=== PATIENT | male | born 1980 | race African-American/Black ===

== ENCOUNTER 2018-01-22 21:43 | Inpatient (IN) | payer OTHER ==
[~2018-01-22] VITALS: Ht 177.8 cm; Wt 70.8 kg
--- NOTE | 2018-01-22 21:45 | NUR ---
PT BIBRA FR STREETS FOR INCREASED AGITATION, RUNNING INTO STREET, VERBALLY AGRESSIVE, POSSIBLE OD ON [place] SUBSTANCE, REQUIRING [employer] ASSISTANCE TO RESTRAIN PT, GIVEN VERSED 5MG IM IN FIELD. PT CONTINUES TO BE RESTLESS, AGITATED, UNABLE TO ACCOUNT FOR OWN SAFETY, PLACED ON CONTINUOUS 4-POINT RESTRAINTS ALL EXTREMITIES W/ PULSE-OX ON CARDIAC MONITORING, BED LOW TO GROUND, SIDERAILS UP FOR SAFETY, NEEDING CONTINUOUS VERBAL REDIRECTION.
[2018-01-22] MEDS ORDERED: OLANZAPINE 10 MG VIAL IM ONE (22:00)
[2018-01-22] MEDS ORDERED: LORAZEPAM INJ 2 MG/ML VIAL IM ONE (22:00)
[2018-01-22 22:20] LABS: BASOPHILS % (AUTO) 0.3 % (0.0-2.0); EOSINOPHILS % (AUTO) 0.5 % (0.0-6.0); HEMATOCRIT 30 % (39-51); HEMOGLOBIN 9.8 g/dL (13.5-17.5); LYMPHOCYTES # (AUTO) 1.4 /CMM (0.8-4.8); LYMPHOCYTES % (AUTO) 35.6 % (20.0-44.0); MEAN CORPUSCULAR HGB CONC 33 g/dl (31.0-36.0); MEAN CORPUSCULAR VOLUME 84 fL (80-96); MONOCYTES # (AUTO) 0.7 /CMM (0.1-1.30); MONOCYTES % (AUTO) 19.2 % (2.0-12.0); NEUTROPHILS # (AUTO) 1.7 /CMM (1.8-8.9); NEUTROPHILS % (AUTO) 44.4 % (43.0-81.0); PLATELET COUNT (AUTO) 190 /CMM (150-450); WHITE BLOOD COUNT (AUTO) 3.9 K/uL (4.3-11.0)
[2018-01-22 22:39] LABS: ALANINE AMINOTRANSFERASE 30 U/L (12-78); ALBUMIN 3.3 g/dL (3.4-5.0); ALKALINE PHOSPHATASE 101 U/L (46-116); ASPARTATE AMINOTRANSFERASE 60 U/L (15-37); BILIRUBIN,DIRECT 0.1 mg/dL (0.0-0.2); BILIRUBIN,TOTAL 0.3 mg/dL (0.2-1.0); CALCIUM, SERUM 8.2 mg/dL (8.5-10.1); CARBON DIOXIDE 24 mmol/L (21-32); CHLORIDE 102 mmol/L (98-107); CREATININE 1.2 mg/dL (0.6-1.3); GLUCOSE 82 mg/dL (74-106); SODIUM SERUM 138 mmol/L (136-145); TOTAL PROTEIN, SERUM 7.7 g/dL (6.4-8.2); UREA NITROGEN, BLOOD 15 mg/dL (7-18)
[2018-01-22 22:40] LABS: ACETAMINOPHEN 0 ug/ml (10-30); ALCOHOL, BLOOD < 3 mg/dL (0-0); SALICYLATE 2.2 mg/dL (2.8-20.0)
[2018-01-22 22:41] LABS: POTASSIUM 2.7 mmol/L (3.5-5.1)
[2018-01-22] MEDS ORDERED: POTASSIUM CHLORIDE 10 MEQ/50 ML PREMIXED IVPB FOR PERIPHERAL LINE IV ONE (23:00)
[2018-01-22 23:05] LABS: LYMPHOCYTES % (MANUAL) 40 % (16-48); MONOCYTES % (MANUAL) 12 % (0-11.0)
[2018-01-22 23:06] LABS: NEUTROPHILS % (MANUAL) 48 (42-76)
[2018-01-22] MEDS ORDERED: POTASSIUM CL. PREMIX PERIPHER. 50 ML ONE (23:07)
[2018-01-23] MEDS ORDERED: POTASSIUM CL. PREMIX PERIPHER. 150 ML ONE (00:13)
[2018-01-23] MEDS ORDERED: LORAZEPAM INJ 2 MG/ML VIAL IV PRN (00:30)
[2018-01-23] MEDS ORDERED: ONDANSETRON HCL/PF 4 MG/2 ML VIAL IVP PRN (00:30)
[2018-01-23] MEDS: IV NS 0.9% 1,000 ML IV PRN ×2 (00:57→16:00)
--- NOTE | 2018-01-23 01:00 | NUR ---
MAINFRAME CONSULTANT ADMITTING NOTES RECEIVED REPORT FROM DINKEY BRAKEMAN. PATIENT ARRIVED VIA GURNEY & ADMITTED UNDER CARE OF DR GALARZA. PATIENT A/A/OX3 W/ SOME DISORIENTATION NOTED BUT ABLE TO STATE NAME, DATE, & PLACE & FOLLOW SIMPLE COMMANDS. BREATHING EVEN & UNLABORED, TOLERATING ROOM AIR. DENIES ANY SOB OR DIFFICULTY BREATHING. ON TELE W/ SINUS RHYTHM, HR 88. LEFT AC IV #18 INTACT & PATENT W/ DRESSING CDI. NO SIGNS OF INFILTRATION NOTED. NOTED W/ STEADY GAIT WHEN AMBULATED FROM GURNEY TO BED. ORIENTED TO ROOM AND STAFF. SAFETY MEASURES IN PLACE W/ SIDE RAILS UP & BED ALARM ON. INSTRUCTED TO USE CALL LIGHT FOR ANY ASSISTANCE. WILL CARRY OUT ADMITTING ORDERS & CONTINUE TO MONITOR.
[2018-01-23 01:38] VITALS: BP 138/82
--- NOTE | 2018-01-23 02:45 | NUR ---
FARM SUPERVISOR NOTES NOTED W/ INCREASED RESTLESSNESS & DISORIENTATION. BILATERAL SOFT WRIST RESTRAINTS APPLIED FOR ADDITIONAL SAFETY & TO AVOID PULLING OUT OF IV.
[2018-01-23 04:00] VITALS: BP 128/78
--- NOTE | 2018-01-23 07:59 | NUR ---
RN NOTE: PATIENT RECEIVED ASLEEP, EASILY AROUSAL; ON ROOM AIR, NO DISTRESS NOTED. NO S/S OF PAIN/DISCOMFORT NOTED AT THIS TIME. SAFETY MEASURES OBSERVED. BILATERAL SOFT WRIST RESTRAINTS. IV IS RUNNING ORDERED. WILL CONTINUE TO MONITOR.
[2018-01-23 08:00] VITALS: BP 120/79
[2018-01-23] MEDS: PANTOPRAZOLE 40 MG VIAL IV SCH (09:30)
[2018-01-23 10:03] LABS: CALCIUM, SERUM 8.2 mg/dL (8.5-10.1); POTASSIUM 3.2 mmol/L (3.5-5.1)
[2018-01-23] MEDS ORDERED: POTASSIUM CL. PREMIX PERIPHER. 50 ML IV SCH (10:23)
--- NOTE | 2018-01-23 11:12 | NUR ---
Social service consult requested by Dr. Ray for homelessness. Pt. is a 37 year old male who was admitted to [facility] for hypokalemia. SW and case mgr Rajwinder met with pt. bedside. Pt. is alert and oriented x 3. Pt. looks disheveled and unkempt. Pt. was friendly and cooperative during the assessment. Pt. had his belongings bedside in a plastic bag. Pt. provided eye contact but was very fidgety during the assessment. Pt. is possibly going through amphetamine withdrawals. Pt. states he was living at [facility], a transitional living program, however decided to awol from the facility. Pt. stated he did not like the rules at the facility. Pt. is a methamphetamine user and last used a day before being hospitalized. Pt. receives [employer] and food stamps monthly. Pt. denies suicidal and homicidal ideations and visual/auditory hallucinations at this time. Pt. is interested in alf placement. SW to locate alf for pt. on day of discharge and provide pt. with homeless resources. Pr's RN was updated on pt's discharge plan.
[2018-01-23] MEDS ORDERED: POTASSIUM CHLORIDE 20 MEQ TAB.PRT.SR PO ONE (11:30)
[2018-01-23 12:00] VITALS: BP 132/83
[2018-01-23 16:00] VITALS: BP 124/70
[2018-01-23 20:00] VITALS: BP 122/82
--- NOTE | 2018-01-23 20:00 | NUR ---
TELE/RN NOTES: RECEIVED PT. IN BED SLEEPING BUT EASILY AROUSABLE. ON TELE MONITOR W/ SR IN 90'S. DENIES ANY C/O CHEST PAIN OR SOB AT PRESENT. RA SAT 100%. HAS LAC G 18 PATENT AND INTACT W/ NO S/S OF INFECTION/INFILTRATION NOTED. HAS IVF RUNNING. INCONTINENT OF B/B. HAS SOFT WRIST RESTRAINS ON. SKIN ASSESSMENT DONE. AROM DONE. BEDS LOCKED AND IN LOW POSITION. CALL LIGHT W/REACH. WILL CONTINUE TO MONITOR.
[2018-01-24] VITALS (7 sets, daily range): BP systolic 131–140; BP diastolic 63–91
[2018-01-24] MEDS: HYDROCODONE/APAP 5/325MG 1 EACH TABLET PO PRN ×2 (05:02→19:59)
[2018-01-24] MEDS: IV NS 0.9% 1,000 ML IV PRN ×2 (05:03→21:46)
[2018-01-24 06:54] LABS: BASOPHILS % (AUTO) 1.1 % (0.0-2.0); EOSINOPHILS % (AUTO) 1.6 % (0.0-6.0); HEMATOCRIT 30 % (39-51); HEMOGLOBIN 9.9 g/dL (13.5-17.5); LYMPHOCYTES # (AUTO) 1.3 /CMM (0.8-4.8); LYMPHOCYTES % (AUTO) 41.5 % (20.0-44.0); MEAN CORPUSCULAR HGB CONC 33 g/dl (31.0-36.0); MEAN CORPUSCULAR VOLUME 84 fL (80-96); MONOCYTES # (AUTO) 0.4 /CMM (0.1-1.30); MONOCYTES % (AUTO) 11.9 % (2.0-12.0); NEUTROPHILS # (AUTO) 1.4 /CMM (1.8-8.9); NEUTROPHILS % (AUTO) 43.9 % (43.0-81.0); PLATELET COUNT (AUTO) 173 /CMM (150-450); RDW COEFFICIENT OF VARIATION 15.4 (11.5-15.0); RED BLOOD CELL COUNT(AUTO) 3.55 MIL/uL (4.5-6.0); WHITE BLOOD COUNT (AUTO) 3.1 K/uL (4.3-11.0)
--- NOTE | 2018-01-24 07:00 | NUR ---
TRAVELING CRANE OPERATOR NOTES PATIENT IN BED EYES CLOSED, EASILY ARROUSABLE, VERBALLY RESPONSIVE. HOB ELEVATED. NO ACUTE DISTRESS NOTED. DENIED ANY PAIN. IV ACCESS PATENT AND INTACT, NO REDNESS OR SWELLING. SAFETY MEASURES IN PLACE. CALL LIGHT WITHIN REACH. WILL CONTINUE TO MONITOR ACCORDINGLY.
[2018-01-24 07:19] LABS: CALCIUM, SERUM 7.8 mg/dL (8.5-10.1); CREATININE 0.9 mg/dL (0.6-1.3); MAGNESIUM 1.7 mg/dL (1.8-2.4); PHOSPHORUS 2.8 mg/dL (2.5-4.9); POTASSIUM 3.4 mmol/L (3.5-5.1)
--- NOTE | 2018-01-24 07:29 | NUR ---
TELE/RN NOTES: REPORT GIVEN TO NEXT SHIFT FOR LETICIA.
[2018-01-24 07:31] LABS: THYROID STIMULATING HORMONE 0.432 uIU/mL (0.358-3.74)
[2018-01-24] MEDS: PANTOPRAZOLE 40 MG VIAL IV SCH (08:24)
[2018-01-24] MEDS ORDERED: POTASSIUM CHLORIDE 20 MEQ TAB.PRT.SR PO SCH (11:00)
[2018-01-24] MEDS: Magnesium 1GM/D5W 100ML PREMIX 100 ML IV SCH ×2 (11:24→12:35)
[2018-01-24] MEDS ORDERED: OLANZAPINE 5 MG TABLET PO PRN (12:30)
[2018-01-24] MEDS ORDERED: LORAZEPAM 1 MG TABLET PO PRN (12:30)
--- NOTE | 2018-01-24 19:00 | NUR ---
BRICK SETTER NOTES PATIENT IN BED EYES CLOSED, EASILY AROUSABLE, VERBALLY RESPONSIVE. HOB ELEVATED. SITTER AT BEDSIDE. NO ACUTE DISTRESS NOTED. DENIED ANY PAIN. IV ACCESS PATENT AND INTACT, NO REDNESS OR SWELLING. DUE MEDICATIONS GIVEN, NO ASE NOTED.NEEDS ATTENDED AND ANTICIPATED. KEPT CLEAN DRY AND COMFORTABLE. SAFETY MEASURES IN PLACE. CALL LIGHT WITHIN REACH. ENDORSED TO NIGHT NURSE FOR CONTINUITY OF CARE.
--- NOTE | 2018-01-24 19:30 | NUR ---
FORM BLOCK MAKER NOTES: RECEIVED PT ON BED ALERT AND AWAKE, VERBALLY RESPONSIVE. SITTER AT BEDSIDE. NO ACUTE DISTRESS NOTED. DENIES PAIN AND DISCOMFORT AT THIS TIME. ON ROOM AIR, SATURATING WELL. NO SOB NOTED. ON TELE MONITOR SINUS RHYTHM HR 94BPM. IV ON LEFT ANTECUBITAL #18 INTACT AND PATENT WITH IVF NS RUNNING AT 75ML/HR. KEPT CLEAN, DRY AND COMFORTABLE. SAFETY AND FALL PRECAUTIONS OBSERVED AND MAINTAINED. WILL CONTINUE TO MONITOR PT.
[2018-01-25] VITALS (8 sets, daily range): BP systolic 114–145; BP diastolic 74–95
--- NOTE | 2018-01-25 06:42 | NUR ---
BLANKET BINDER NOTES: NO CHANGES NOTED THROUGHOUT THE SHIFT. SITTER AT BEDSIDE. NO SIGNS/SYMPTOMS OF AGITATION NOTED. IV ON LEFT ANTECUBITAL WAS REMOVED, REINSERTED IV ON LEFT HAND #20, INTACT AND PATENT, FLUSHING WELL. SINUS RHYTHM ON TELE MONITOR HR 88BPM. KEPT CLEAN, DRY AND COMFORTABLE. SAFETY AND FALL PRECAUTIONS OBSERVED AND MAINTAINED. WILL ENDORSE TO DAY SHIFT FOR CONTINUITY OF CARE.
[2018-01-25 06:45] LABS: CREATININE 0.9 mg/dL (0.6-1.3); POTASSIUM 3.8 mmol/L (3.5-5.1)
[2018-01-25] MEDS: PANTOPRAZOLE 40 MG VIAL IV SCH (09:10)
[2018-01-25] MEDS: HYDROCODONE/APAP 5/325MG 1 EACH TABLET PO PRN (13:14)
[2018-01-25] MEDS: IV NS 0.9% 1,000 ML IV PRN (14:41)
--- NOTE | 2018-01-25 18:16 | NUR ---
RN NOTES PATIENT CALM AND COOPERATIVE, SITTER AT BEDSIDE, SOFT WRIST RESTRAINTS HAS BEEN OFF THROUGHOUT THE SHIFT. NO AGITATION OBSERVED. DENIES PAIN OR DISCOMFORT AT THIS TIME. IV FLUIDS INFUSING AND TOLERATING WELL, NEEDS ATTENDED AND MET, CALL LIGHT WITHIN REACH, WILL ENDORSE TO BREAKDOWN MAN FOR LETICIA.
--- NOTE | 2018-01-25 19:47 | NUR ---
TELE/RN OPENING NOTES RECEIVED PATIENT SITTING IN BED, COOPERTAIVE TO CARE, WITH NO RESTRAINT BUT WITH SITTER FOR MONITORING FOR SAFETY, OBSERVED IV WAS PULLED OUT AND REPORTED THAT HE MUST HAVE PULLED IT, IV WAS ATTEMPTED BUT UNSUCCCESFUL AND PATIENT VERBALIZED THAT HE DO NOT NEED TO HAVE IT HE IS DRINKING WATER, WILL INFORM CHARGE NURSE, PATIENT HAVING SNACKS AND APPEAR IN GOOD MOOD, NO S/S OF BEHAVIOR CHANGES OR SELF HARM AT THIS TIME, INSTUCT TO ASK FOR HELP AT ALL TIMES, PATIENT VERBALIZED UNDERSTANDING, SKIN WARM TO TOUCH, CALM AND PARTICIPATIVE WITH CARE. WATCHES TV AND KEEP SELF PREOCCUPIED WITH LIGHT SNACKING. RECEIVED ENDORSEMENT FROM AM RN FOR LETICIA.
[2018-01-26] VITALS: BP 145/85
[2018-01-26] MEDS: HYDROCODONE/APAP 5/325MG 1 EACH TABLET PO PRN (00:34)
--- NOTE | 2018-01-26 00:38 | NUR ---
tele/rn notes patient awaken from sleep , requesting for pain medication to help relieve elise in body, provided medication as needed norco 5-325 mg , will monitor, patietn tolerated medication.
[2018-01-26 04:00] VITALS: BP 137/90
--- NOTE | 2018-01-26 05:57 | NUR ---
tele/rn notes patietn change of behavior and requesting to leave against medical advise but able to sign the ama form, appear with interna stimulation, refuse to have as needed ativan , ,wheeled and assist for safety, contacted
== END 2018-01-26 05:37 | disposition left against medical advice (07) | DRG 816 ==
LOC: ER 21:46 → EDBD 21:46 → TELE1 23:49
PROVIDERS: ATTEND Family Medicine
DX: T65.891A Toxic effect of other specified substances, accidental (unintentional), initial encounter (principal); G92 Toxic encephalopathy; E44.1 Mild protein-calorie malnutrition; E83.51 Hypocalcemia; E87.6 Hypokalemia; Y92.89 Other specified places as the place of occurrence of the external cause; Z59.0 Homelessness; D63.8 Anemia in other chronic diseases classified elsewhere; F15.159 Other stimulant abuse with stimulant-induced psychotic disorder, unspecified; Z72.0 Tobacco use; F20.9 Schizophrenia, unspecified; F10.10 Alcohol abuse, uncomplicated; Y90.9 Presence of alcohol in blood, level not specified
CPT/HCPCS: 36415; 70450-TC; 80048-TC; 80061-TC; 80076-TC; 80305; 82140-TC; 83735-TC; 84100-TC; 84443-TC; 85025-TC; 87081-TC; A4606; C9113; G0378; G0480; J3475; J3480; J7030; J7040; J7050; Z7610